=== PATIENT | male | born 1995 | race Caucasian/White ===

== ENCOUNTER 2018-05-30 21:59 | Emergency (ER) | payer MEDICAID, OTHER ==
[~2018-05-30] VITALS: Ht 165.1 cm; Wt 63.0 kg
[2018-05-30 22:03] VITALS: Ht 165.1 cm; Wt 63.0 kg
--- NOTE | 2018-05-30 23:48 | ERD ---
ER Documentation Chief Complaint Chief Complaint Pt reports while playing soccer he began having L CP and tingling HPI 22-year-old male presenting with complaints of chest pain and headache that started while he was playing soccer. He has had multiple episodes like this in the past. His last episode was about 2 months ago. He went to another hospital where his workup was negative and he was told to follow-up with a supervisor [employer], which he has not done yet. He is awaiting an appointment with his primary care doctor to get a referral to a supervisor [employer]. He states that he starts to feel dizzy, then gets a headache, then starts feeling chest pressure, with all his symptoms lasting about 1 hour. He becomes very shaky as well. He has had multiple episodes like this back in [facility], but he was told it was because of his migraine headaches. Currently his headache is aching, frontal, 6 out of 10, nonradiating, with no associated vision disturbance, focal weakness or numbness. No nausea or vomiting. This is not feel like his migraine but he has had similar headaches before. He states that the episodes are not always associated with activity. Currently he denies any chest pain. ROS All systems reviewed and are negative except as per history of present illness. Medications Home Meds No Active Prescriptions or Reported Meds Allergies Allergies: Coded Allergies: No Known Allergy (Unverified , 05/30/18) PMhx/Soc Medical and Surgical Hx: pt denies Medical Hx, pt denies Surgical Hx History of Surgery: No Anesthesia Reaction: No Hx Neurological Disorder: No Hx Respiratory Disorders: No Hx Cardiac Disorders: No Hx Psychiatric Problems: No Hx Miscellaneous Medical Probl: No Hx Alcohol Use: Yes (occasional) Hx Substance Use: No Hx Tobacco Use: Yes (occasional) Smoking Status: Light tobacco smoker FmHx Family History: No diabetes, No coronary disease Physical Exam Vitals Vital Signs Date Temp Pulse Resp B/P (MAP) Pulse Ox O2 O2 Flow FiO2 Time Delivery Rate 05/31/18 97.9 68 12 114/76 100 00:20 (89) 05/30/18 36.6 23:56 05/30/18 97.9 81 16 117/74 100 23:55 (88) 05/30/18 97.9 105 16 149/69 100 22:03 (95) Physical Exam Const: No acute distress, well-appearing Head: Atraumatic Eyes: Normal Conjunctiva, PERRLA, EOMI, no nystagmus ENT: Normal External Ears, Nose and Mouth. Neck: Full range of motion. No meningismus. Resp: Clear to auscultation bilaterally Cardio: Regular rate and rhythm, no murmurs. 2+ distal pulses in all 4 extremities Abd: Soft, non tender, non distended. Normal bowel sounds Skin: No petechiae or rashes Back: No midline or flank tenderness Ext: No cyanosis, or edema Neur: Awake and alert, oriented x3, normal speech, no facial asymmetry, strength and sensations intact in all 4 extremities Psych: Normal Mood and Affect Result Diagram: 05/30/18 2341 05/30/18 2341 Results 24 hrs Laboratory Tests Test 05/30/18 23:41 White Blood Count 17.7 10^3/ul Red Blood Count 4.22 10^6/ul Hemoglobin 13.6 g/dl Hematocrit 39.2 % Mean Corpuscular Volume 92.9 fl Mean Corpuscular Hemoglobin 32.2 pg Mean Corpuscular Hemoglobin Concent 34.7 g/dl Red Cell Distribution Width 12.5 % Platelet Count 321 10^3/UL Mean Platelet Volume 9.0 fl Immature Granulocytes % 0.400 % Neutrophils % 82.0 % Lymphocytes % 11.3 % Monocytes % 6.1 % Eosinophils % 0.1 % Basophils % 0.1 % Nucleated Red Blood Cells % 0.0 /100WBC Immature Granulocytes # 0.070 10^3/ul Neutrophils # 14.5 10^3/ul Lymphocytes # 2.0 10^3/ul Monocytes # 1.1 10^3/ul Eosinophils # 0.0 10^3/ul Basophils # 0.0 10^3/ul Nucleated Red Blood Cells # 0.0 10^3/ul Sodium Level 140 mmol/L Potassium Level 3.8 mmol/L Chloride Level 98 mmol/L Carbon Dioxide Level 28 mmol/L Anion Gap 14 Blood Urea Nitrogen 20 mg/dl Creatinine 0.91 mg/dl Est Glomerular Filtrat Rate mL/min > 60 mL/min Glucose Level 101 mg/dl Calcium Level 9.9 mg/dl Troponin I < 0.012 ng/ml Current Medications Medications Dose Sig/Delores Start Time Status Last (Trade) Ordered Route PRN Stop Time Admin Dose Reason Admin Ibuprofen 600 mg ONCE ONCE 05/31/18 DC 05/30/18 (Motrin) PO 00:00 23:56 05/31/18 00:01 Procedures/MDM EMERGENT LABS AND DIAGNOSTIC STUDIES: Lab Results above reviewed and interpreted by me. All labs are normal other than CBC which showed leukocytosis, likely stress response 12-lead EKG was interpreted by Beth Rios MD: Normal Sinus Rhythm with sinus arrhythmia at 86 bpm Normal axis Normal intervals No acute ST or T wave changes suggestive of acute ischemia or STEMI. Radiology Results as interpreted by Radiology below were reviewed by Lori Rios MD: Chest x-ray shows no acute abnormalities Initial Nursing notes reviewed. Previous Medical Records requested via the Electronic Health Record. EMERGENCY DEPARTMENT COURSE / MEDICAL DECISION MAKING: The patient presents with chest pain and headache with chest pain now resolved. Vitals are stable. I considered pulmonary embolism, aortic dissection, pericarditis, myocarditis, pneumothorax among other diagnoses. Evaluation for acute coronary syndrome was performed. The HEART score was utilized for risk stratification and found to be 1. I have a low suspicion for acute cardiac emergency. I do not suspect PE, pericarditis, myocarditis, aortic dissection. Chest x-ray did not show any evidence of pneumothorax, mediastinal widening, p neumo mediastinum, or pulmonary infiltrate. labs did show evidence of leukocytosis but I suspect this is due to stress response as the patient is afebrile, well-appearing, with no signs of Infection on workup or exam. With regard to his headache, I do not suspect acute intracranial hemorrhage, carotid dissection, meningitis, or encephalitis. As this has happened multiple times in the past, I recommended follow-up with PCP to see if he needs any further workup and if he needs cardiology referral. Upon discharge, vitals are stable. I explained to the patient that the cause of his symptoms is unclear at this time but likely not life-threatening. Strict return precautions discussed. Departure Diagnosis: Primary Impression: Chest pain Chest pain type: precordial pain Qualified Codes: R07.2 - Precordial pain Additional Impressions: Headache Headache type: tension-type Headache chronicity pattern: acute headache Intractability: not intractable Qualified Codes: G44.209 - Tension-type headache, unspecified, not intractable Leukocytosis, unspecified Condition: Stable TOYA RIOS MD May 30, 2018 23:48
[2018-05-31] MEDS ORDERED: IBUPROFEN 600 MG TAB PO ONE
[2018-05-31 00:20] VITALS: BP 114/76; PULSE 68; RESP 12
== END 2018-05-31 01:17 | disposition home or self-care (01) ==
LOC: E/R 21:59
DX: R07.2 Precordial pain (principal); G44.209 Tension-type headache, unspecified, not intractable; D72.829 Elevated white blood cell count, unspecified; F17.210 Nicotine dependence, cigarettes, uncomplicated
CPT/HCPCS: 36415; 71045; 80048; 84484; 85025; 93005; Z7502; Z7610